=== PATIENT | male | born 1970 ===

== ENCOUNTER 2017-03-01 22:31 | Emergency (ER) | payer SELFPAY ==
[~2017-03-01] VITALS: Ht 175.3 cm; Wt 77.5 kg
[2017-03-01 22:38] VITALS: Ht 175.3 cm; Wt 77.5 kg
--- NOTE | 2017-03-01 23:47 | RADRPT ---
PROCEDURE: XR Chest. CLINICAL INDICATION: Chest pain. TECHNIQUE: Portable AP semi erect view of the chest was obtained. COMPARISON: None available. FINDINGS: The cardiomediastinal silhouette is within normal limits. The lungs are clear. There is no evidenc e for pleural effusion, pneumothorax or pulmonary vascular congestion. The osseous structures are i ntact with no evidence for acute abnormality. RPTAT:HJJR IMPRESSION: No evidence for acute intrathoracic pathology. Physician Josiah Date Time Electronically viewed and signed by Physician Josiah on 03/01/2017 23:47 JR/
[2017-03-02 00:33] LABS: ADD SCAN DIFF NO
[2017-03-02 00:35] LABS: BASOPHILS % 0.2 % (0.0-2.0); EOSINOPHILS # 0.1 10^3/ul (0.0-0.5); EOSINOPHILS % 1.4 % (0.0-7.0); HEMATOCRIT 49.5 % (42.0-52.0); HEMOGLOBIN 16.8 g/dl (14.0-18.0); LYMPHOCYTES # 1.3 10^3/ul (0.8-2.9); LYMPHOCYTES % 14.7 % (15.0-51.0); MEAN CORPUSCULAR HEMOGLOBIN 29.3 pg (29.0-33.0); MEAN CORPUSCULAR HGB CONC 33.9 g/dl (32.0-37.0); MEAN CORPUSCULAR VOLUME 86.4 fl (82.0-101.0); MEAN PLATELET VOLUME 10.3 fl (7.4-10.4); MONOCYTE # 0.7 10^3/ul (0.3-0.9); MONOCYTES % 7.6 % (0.0-11.0); NEUTROPHIL # 6.7 10^3/ul (1.6-7.5); NEUTROPHILS % 75.8 % (39.0-77.0); PLATELET COUNT 242 10^3/UL (140-415); RED BLOOD COUNT 5.73 10^6/ul (4.70-6.10); RED CELL DISTRIBUTION WIDTH 12.7 % (11.5-14.5); WHITE BLOOD COUNT 8.8 10^3/ul (4.8-10.8)
[2017-03-02 01:00] LABS: PROTIME 13.2 Sec (12.2-14.2)
[2017-03-02 01:01] LABS: B-TYPE NATRIURETIC PEPTIDE 29 PG/ML (0-125); PARTIAL THROMBOPLASTIN TIME 30.7 Sec (25.0-35.0)
[2017-03-02 01:02] LABS: TROPONIN-I < 0.012 ng/ml (0.00-0.12)
[2017-03-02 01:03] LABS: ANION GAP 9 (8-16); BLOOD UREA NITROGEN 21 mg/dl (7-20); CALCIUM 9.1 mg/dl (8.4-10.2); CARBON DIOXIDE 26 mmol/L (21-31); CHLORIDE 105 mmol/L (97-110); CREATININE 0.82 mg/dl (0.61-1.24); GLUCOSE 108 mg/dl (70-220); POTASSIUM 3.8 mmol/L (3.5-5.1); SODIUM 136 mmol/L (135-144)
[2017-03-02] MEDS ORDERED: DICLOFENAC SODIUM 37.5 MG/ML VIAL IV STA (01:21)
[2017-03-02] MEDS ORDERED: HYDR-906 PO (02:04)
[2017-03-02] MEDS ORDERED: RANI150T9 PO (02:04)
[2017-03-02] MEDS ORDERED: AZIT500T5 PO (02:04)
--- NOTE | 2017-03-02 02:17 | ERD ---
ER Documentation Chief Complaint Date/Time DATE: 03/02/17 TIME: 02:08 Chief Complaint nosebleeding x 5 days. no active nosebleeding in intake. c/o gen. body ache HPI This 46-year-old male presented emergency room for nosebleed is been going on and off for 5 days. Is not bleeding currently. Also he complains of chest pain and left side of his chest with the cough. The chest pain is around the lateral lower rib cage area and is worse with coughing. It does not radiate. Pain is been on and off for several days. He has had no fevers that he knows of but has had chills and generalized body aches. Is otherwise healthy with no medical problems. ROS All systems reviewed and are negative except as per history of present illness. Medications Home Meds Active Scripts Ranitidine Hcl* (Zantac*) 150 Mg Tablet, 150 MG PO BID Y for EPIGASTRIC PAIN, # 30 TAB Prov:JANELCONYEMMY VILLAGOMEZ 03/02/17 Hydrocodone/Acetaminophen ([facility] 5-325 Tablet) 1 Each Tablet, 1 EACH PO Q6, #12 TAB Prov:JANELCONY DO 03/02/17 Azithromycin* (Azithromycin*) 500 Mg Tablet, 500 MG PO DAILY, #3 TAB Prov:CONY ISLAS DO 03/02/17 Allergies Allergies: Coded Allergies: No Known Drug Allergies (Verified Allergy, Unknown, 03/01/17) PMhx/Soc Medical and Surgical Hx: pt denies Medical Hx History of Surgery: Yes (HERNIA REPAIR 2014) Anesthesia Reaction: No Hx Neurological Disorder: No Hx Respiratory Disorders: No Hx Cardiac Disorders: No Hx Psychiatric Problems: No Hx Miscellaneous Medical Probl: No Hx Alcohol Use: No Hx Substance Use: No Hx Tobacco Use: No Smoking Status: Never smoker Physical Exam Vitals Vital Signs Date Time Temp Pulse Resp B/P Pulse Ox O2 Delivery O2 Flow Rate FiO2 03/02/17 01:44 99.2 64 14 121/80 99 03/01/17 22:38 100.3 109 20 135/75 98 Physical Exam Const: [] No distress Head: Atraumatic Eyes: Normal Conjunctiva ENT: Normal External Ears, Nose and Mouth. Evidence of anterior nosebleed from left near with friable tissue along the septum. No active bleeding. Neck: Full range of motion..~ No meningismus. Resp: Clear to auscultation bilaterally Cardio: Regular rate and rhythm, no murmurs Abd: Soft, non tender, non distended. Normal bowel sounds Skin: No petechiae or rashes Back: No midline or flank tenderness Ext: No cyanosis, or edema Neur: Awake and alert Psych: Normal Mood and Affect Result Diagram: 03/01/17 2345 03/01/17 2345 Results 24 hrs Laboratory Tests Test 03/01/17 23:45 White Blood Count 8.810^3/ul Red Blood Count 5.7310^6/ul Hemoglobin 16.8g/dl Hematocrit 49.5% Mean Corpuscular Volume 86.4fl Mean Corpuscular Hemoglobin 29.3pg Mean Corpuscular Hemoglobin Concent 33.9g/dl Red Cell Distribution Width 12.7% Platelet Count 03909^3/UL Mean Platelet Volume 10.3fl Neutrophils % 75.8% Lymphocytes % 14.7% Monocytes % 7.6% Eosinophils % 1.4% Basophils % 0.2% Nucleated Red Blood Cells % 0.0/100WBC Neutrophils # 6.710^3/ul Lymphocytes # 1.310^3/ul Monocytes # 0.710^3/ul Eosinophils # 0.110^3/ul Basophils # 0.010^3/ul Nucleated Red Blood Cells # 0.010^3/ul Prothrombin Time 13.2Sec Prothrombin Time Ratio 1.0 INR International Normalized Ratio 1.00 Activated Partial Thromboplast Time 30.7Sec Sodium Level 136mmol/L Potassium Level 3.8mmol/L Chloride Level 105mmol/L Carbon Dioxide Level 26mmol/L Anion Gap 9 Blood Urea Nitrogen 21mg/dl Creatinine 0.82mg/dl Glucose Level 108mg/dl Calcium Level 9.1mg/dl Troponin I < 0.012ng/ml B-Type Natriuretic Peptide 29PG/ML Current Medications Medications (Trade) Dose Ordered Sig/Noe Route PRN Reason Start Time Stop Time Status Last Admin Dose Admin Diclofenac Sodium (Dyloject) 37.5 mg ONCE STAT IV 03/02/17 01:21 03/02/17 01:22 DC 03/02/17 01:39 Procedures/MDM Chest pain likely secondary to bronchitis as well as epistaxis. No active nosebleed in the emergency room. I had the patient blow his nose and there was still no further bleeding. Cardiac workup was also performed. No signs of ischemia and his EKG. Patient also has no risk factors for acute coronary syndrome. He was given diclofenac IV which helped with his body aches. Admitted discharge him and Jean Marie, as Zantac, azithromycin 500 mg 3 days. Ga Marie having him follow up with his primary care doctor and instructed him to have a referral for an echocardiogram as well as an ENT doctor if he continues to have any nosebleeds. EKG interpretation: Normal sinus rhythm, normal axis, no ST-T wave changes concerning for acute ischemia, rate of 96, normal intervals dog warden interpretation: Normal sinus rhythm without arrhythmia Chest x-ray interpretation: I see no acute process, I see no consolidation, no pulmonary edema, no pneumothorax, no fractures. Departure Diagnosis: Primary Impression: Bronchitis Additional Impressions: Epistaxis Chest pain Condition: Stable Patient Instructions: Bronchitis, Antiobiotic Treatment (Adult), Chest Pain, Uncertain Cause, Epistaxis (Adult) Referrals: [facility] YOU HAVE RECEIVED A MEDICAL SCREENING EXAM AND THE RESULTS INDICATE THAT YOU DO NOT HAVE A CONDITION THAT REQUIRES URGENT TREATMENT IN THE EMERGENCY DEPARTMENT. FURTHER EVALUATION AND TREATMENT OF YOUR CONDITION CAN WAIT UNTIL YOU ARE SEEN IN YOUR DOCTORS OFFICE WITHIN THE NEXT 1-2 DAYS. IT IS YOUR RESPONSIBILITY TO MAKE AN APPOINTMENT FOR FOLOW-UP CARE. IF YOU HAVE A PRIMARY DOCTOR --you should call your primary doctor and schedule an appointment IF YOU DO NOT HAVE A PRIMARY DOCTOR YOU CAN CALL OUR PHYSICIAN REFERRAL HOTLINE AT IF YOU CAN NOT AFFORD TO SEE A PHYSICIAN YOU CAN CHOSE FROM THE FOLLOWING [facility] [address] [facility] [address] [facility] [address] [facility]. [facility] [address] [facility]. [facility] [address] [facility]. [facility]. [address] Additional Instructions: Llame al doctor MAYTE y dixon pretty DELVIS PARA DENTRO DE 2-3 STILL. Consigue un referral para un ECHOCARDIOGRAMA. Tambien consigue un referral para un ENT doctor para jones de la nariz. Dgale a la secretaria que nosotros le instruimos hacer esta delvis.Avise o llame si montgomery condicin se empeora antes de la delvis. Regresa aqui si peor o no mejor. CONY ISLAS DO Mar 02, 2017 02:16
[2017-03-02 02:19] VITALS: BP 121/80; PULSE 65; RESP 14; TEMP 98.9
== END 2017-03-02 02:19 | disposition home or self-care (01) ==
LOC: FTE 22:31
DX: J20.9 Acute bronchitis, unspecified (principal); R07.9 Chest pain, unspecified
CPT/HCPCS: 36415; 71010; 80048; 83880; 84484; 85025; 85610; 85730; 93005; 96374